=== PATIENT | female | born 1985 | race African-American/Black ===

== ENCOUNTER 2023-10-27 00:06 | Emergency (ER) | payer SELFPAY ==
[2023-10-27 00:27] VITALS: BP 140/91; PULSE 90; RESP 18; O2SAT 100
== END 2023-10-27 07:25 | disposition left against medical advice (07) ==
LOC: ER 00:06
DX: M79.10 Myalgia, unspecified site (principal); Z53.21 Procedure and treatment not carried out due to patient leaving prior to being seen by health care provider